=== PATIENT | male | born 1980 | race Caucasian/White ===

== ENCOUNTER 2020-12-05 18:53 | Emergency (ER) | payer SELFPAY ==
[~2020-12-05] VITALS: Ht 180.3 cm; Wt 80.0 kg
[2020-12-05 19:04] VITALS: BP 152/93
[2020-12-06] MEDS ORDERED: SULF1TAB48 MT ×2 (19:40→19:45)
[2020-12-06] MEDS ORDERED: CEPH500C2 MT ×2 (19:40→19:45)
== END 2020-12-05 22:50 | disposition left against medical advice (07) ==
LOC: ER 18:53
DX: Z53.21 Procedure and treatment not carried out due to patient leaving prior to being seen by health care provider (principal)

== ENCOUNTER 2020-12-06 17:36 | Emergency (ER) | payer SELFPAY ==
[~2020-12-06] VITALS: Ht 180.3 cm; Wt 80.0 kg
[2020-12-06 18:41] VITALS: BP 114/71
[2020-12-06] MEDS ORDERED: CEPH500C2 MT ×2 (19:40→19:45)
[2020-12-06] MEDS ORDERED: SULF1TAB48 MT ×2 (19:40→19:45)
== END 2020-12-06 20:04 | disposition home or self-care (01) ==
LOC: ER 17:36
DX: L02.31 Cutaneous abscess of buttock (principal)
CPT/HCPCS: 99281